=== PATIENT | male | born 1985 | race African-American/Black ===

== ENCOUNTER 2018-02-28 14:06 | Emergency (ER) | payer SELFPAY ==
[2018-02-28] MEDS ORDERED: Ibuprofen 800 MG TAB ONE (14:27)
== END 2018-02-28 14:46 | disposition home or self-care (01) ==
LOC: ERS 14:06
DX: B34.9 Viral infection, unspecified (principal); F17.210 Nicotine dependence, cigarettes, uncomplicated
CPT/HCPCS: 87804; 99283